=== PATIENT | female | born 1960 ===

== ENCOUNTER 2020-06-28 00:24 | Emergency (ER) | payer MEDICAID ==
[~2020-06-28] VITALS: Ht 165.1 cm; Wt 112.3 kg
[2020-06-28 00:32] VITALS: TEMP 98.5
[2020-06-28] MEDS ORDERED: 00186-0370-20 IH (01:38)
[2020-06-28] MEDS ORDERED: WELLBUTRIN XL300 M1 PO (01:38)
[2020-06-28] MEDS ORDERED: PROAIR HFA0.09 MG/AC IH (01:38)
[2020-06-28] MEDS ORDERED: KLONOPIN 1MG1 MG PO (01:39)
[2020-06-28] MEDS ORDERED: DEXILANT60 MG PO (01:39)
[2020-06-28] MEDS ORDERED: VITAMIN D250 MCG PO (01:40)
[2020-06-28] MEDS ORDERED: JARDIANCE25 (01:40)
[2020-06-28] MEDS ORDERED: LAMICTAL200 MG PO (01:41)
[2020-06-28] MEDS ORDERED: VISTARIL50 MG PO (01:41)
[2020-06-28] MEDS ORDERED: GLUCOPHAGE500 MG/TAB PO (01:41)
[2020-06-28] MEDS ORDERED: TOPROL XL 50MG50 MG PO (01:42)
[2020-06-28] MEDS ORDERED: PRAVACHOL 40MG40 MG PO (01:42)
[2020-06-28] MEDS ORDERED: ZOLOFT 100MG100 MG PO (01:42)
[2020-06-28] MEDS ORDERED: ZOFRAN8 MG PO (01:42)
[2020-06-28] MEDS ORDERED: VESICARE10 MG PO (01:43)
[2020-06-28] MEDS ORDERED: DIOVAN 40MG40 MG PO (01:43)
[2020-06-28] MEDS ORDERED: PERCOCET 325 MG1 TA2 PO (02:36)
[2020-06-28 03:19] VITALS: BP 116/81; PULSE 93
== END 2020-06-28 03:25 | disposition home or self-care (01) ==
LOC: COL.ER 00:24
DX: S42.252A Displaced fracture of greater tuberosity of left humerus, initial encounter for closed fracture (principal); S43.015A Anterior dislocation of left humerus, initial encounter; J44.9 Chronic obstructive pulmonary disease, unspecified; E11.9 Type 2 diabetes mellitus without complications; I10 Essential (primary) hypertension; E78.00 Pure hypercholesterolemia, unspecified; F31.9 Bipolar disorder, unspecified; F17.210 Nicotine dependence, cigarettes, uncomplicated; Z79.51 Long term (current) use of inhaled steroids; Z79.84 Long term (current) use of oral hypoglycemic drugs; W17.89XA Other fall from one level to another, initial encounter; Y92.009 Unspecified place in unspecified non-institutional (private) residence as the place of occurrence of the external cause
CPT/HCPCS: J2405; J3010; J7030